=== PATIENT | male | born 1990 | race Two or more races ===

== ENCOUNTER 2024-01-16 08:00 | Emergency (ER) | payer MEDICAID, OTHER ==
[~2024-01-16] VITALS: Ht 175.3 cm; Wt 104.5 kg
[2024-01-16] MEDS: LORazepam 0.5 MG TAB PO ONE (10:50)
[2024-01-16 11:03] VITALS: BP 136/64; PULSE 106; RESP 16; TEMP 98.9; O2SAT 99
== END 2024-01-16 11:06 | disposition home or self-care (01) ==
LOC: ER 08:00 → EDBD 08:00 → ER 11:06
DX: F41.9 Anxiety disorder, unspecified (principal); F15.10 Other stimulant abuse, uncomplicated; F32.9 Major depressive disorder, single episode, unspecified

== ENCOUNTER 2025-03-10 06:53 | Emergency (ER) | payer MEDICAID ==
[~2025-03-10] VITALS: Ht 175.3 cm; Wt 78.9 kg
[2025-03-10 07:30] VITALS: BP 130/83; PULSE 93; RESP 18; TEMP 97.9; O2SAT 97
[2025-03-10] MEDS ORDERED: AUG875T PO (07:54)
--- NOTE | 2025-03-10 07:55 | ED.PDOC ---
History of Present Illness(SKN HPI Comments Portions of this chart may have been created with an modal fluency direct voice recognition software. Occasional wrong-word or "sound-alike" substitutions may have occurred due to the inherent limitations of voice recognition software. Please read the chart carefully and recognize, using context, where these substitutions have occurred. 34-year-old male with no MHx presents with a dog bite on the leg Patient reports he was bitten by a dog last night while walking on [address]. The patient experienced pain + comfort at the site of the bite The patient is unsure of when his last tetanus shot was indicating and maybe more than five years ago Patient complains of no other symptoms. Able to ambulate with a no assistive devices Denies abnormal animal behavior Denies history of immunocompromise (HIV hep B hep C) Denies fever chills night sweats Denies redness around the area Chief Complaint: Animal Bite Time Seen by MD: 07:10 Primary Care Provider: SERENA CANO History of Present Illness: Nurses Notes, Medications, Allergies Allergies: Coded Allergies: No Known Drug Allergy (Verified Allergy, Unknown, 01/16/24) Home Meds Active Scripts Amoxicillin & Pot Clavulanate (AUGMENTIN TABLET) 875 Mg Tb, 875 MG PO BID for 7 Days, #14 TAB 0 Refills Prov:IVANIA CARTAGENAYesika Chi CAN TECHNICIAN 03/10/25 Information Source: Patient Mode of Arrival: Ambulatory Past Medical History PAST MEDICAL HISTORY: Anxiety Surgical History: Denies all surgeries Family History Family History: Reviewed,noncontributory to illness Social History Smoker: Non-Smoker Alcohol: Denies ETOH Use Drugs: Denies Drug Use Lives In: Home All Other Systems: Reviewed and Negative (Per HPI) Physical Exam General Appearance: No Apparent Distress, Normal HEENT: Normal ENT Inspection, Pharynx Normal, TMs Normal Neck: Full Range of Motion, Non-Tender, Normal, Normal Inspection Respiratory: Chest Non-Tender, Lungs Clear, No Accessory Muscle Use, No Respiratory Distress, Normal Breath Sounds Cardiovascular: No Edema (s is a pertinent review), No Murmur, No Gallop, Regular Rate/Rhythm Breast Exam: Deferred Gastrointestinal: No Organomegaly, Non Tender, No Pulsatile Mass, Normal Bowel Sounds, Soft Genitalia: Deferred Pelvic: Deferred Rectal: Deferred Extremities: No calf tenderness, Normal capillary refill, Normal inspection, Normal range of motion, Non-tender, No pedal edema Musculoskeletal : Location: Left Extremity Location: Leg (Two small puncture wounds behind the leg. No active bleeding. No surrounding erythema. No TTP) Apperance: Normal Neurologic: Alert, defense analyst II-XII nml as Tested, No Motor Deficits, Normal Affect, Normal Mood, No Sensory Deficits Cerebellar Function: Normal Reflexes: Normal Skin: Dry, Normal Color, Warm Lymphatic: No Adenopathy Was a procedure done? Was a procedure done?: No Differential Diagnosis (INTG) Differential Diagnosis: Other X-Ray, Labs, Meds, VS Vital Signs Date Time Temp Pulse Resp B/P (MAP) Pulse Ox O2 Delivery O2 Flow Rate FiO2 03/10/25 07:30 93 18 97 Room Air 03/10/25 07:30 97.9 93 18 130/83 (99) 97 97.9 03/10/25 06:56 97.9 93 18 130/83 97 97.9 Current Medications Medications (Trade) Dose Ordered Sig/Nelsy Route Start Time Stop Time Status Last Admin Diphtheria/ Tetanus/Acell Pertussis (Boostrix T-Dap) 0.5 ml ONCE ONCE IM 03/10/25 08:00 03/10/25 08:01 DC 03/10/25 08:08 X-Ray, Labs, Meds, VS Comment Based on the history, exam, and test performed, there does not seem to be a retained foreign body, nerve injury, vascular injury, tendon injury, bone injury or foreign body. Wound appears clean. No evidence of purulent discharge. No rabies vaccine given. Tdap given Wound cleaned in the ER with jet irrigation. Will let wound heal by secondary intention to decrease risk of abscess formation. Patient will be discharged home with prophylactic antibiotics. Will discharge home with Augmentin 875mg PO BID x 7days. Patient [facility] or PCP in 2-3 days for wound re- check. Return to ER as needed. Time of 1ST Reevaluation: 07:30 Reevaluation 1ST: Improved Patient Education/Counseling: Diagnosis, Treatment Family Education/Counseling: Diagnosis, Treatment SEPSIS Sepsis Screen Date sepsis recognized/suspect: Mar 10, 2025 Time Sepsis recognized/suspect: 0656 Recent Procedure: No On Antibiotic Therapy: No Respiratory Rate >20: No Heart Rate >90: Yes Temp<36 C (96.8 F) or >38.3 C: No SBP <90 or MAP <65 mmHG: No New Acute Mental Status Change: No Is the patient on CPAP, BIPAP,: No Vital Signs Date Time Temp Pulse Resp B/P (MAP) Pulse Ox O2 Delivery O2 Flow Rate FiO2 03/10/25 07:30 93 18 97 Room Air 03/10/25 07:30 97.9 93 18 130/83 (99) 97 97.9 03/10/25 06:56 97.9 93 18 130/83 97 97.9 Medications Medications Dose Ordered Sig/Nelsy Route Start Time Stop Time Status Last Admin Dose Admin Diphtheria/ Tetanus/Acell Pertussis 0.5 ml ONCE ONCE IM 03/10/25 08:00 03/10/25 08:01 DC 03/10/25 08:08 Departure 1 Departure Time of Disposition: 07:53 Impression: Primary Impression: Dog bite Qualified Codes: W54.0XXA - Bitten by dog, initial encounter Disposition: 01 HOME / SELF CARE / HOMELESS Condition: Stable e-Prescriptions Amoxicillin & Pot Clavulanate (AUGMENTIN TABLET) 875 Mg Tb 875 MG PO BID for 7 Days, #14 TAB 0 Refills Prov: ABELARDO CARTAGENA NP 03/10/25 Critical Care Note Critical Care Time?: No Stability Stability form required: No Heart Score Heart Score: Heart Score Response (Comments) Value History N/A 0 EKG N/A 0 Age N/A 0 Risk Factors N/A 0 Troponin N/A 0 Total 0 ABELARDO CARTAGENA NP Mar 10, 2025 07:55
[2025-03-10] MEDS: TETANUS-DIPTH-ACEL PERTUSSIS 0.5ML SYR Tdap IM ONE (08:08)
== END 2025-03-10 08:17 | disposition home or self-care (01) ==
LOC: ER 06:53
DX: S81.832A Puncture wound without foreign body, left lower leg, initial encounter (principal); F41.9 Anxiety disorder, unspecified; Z79.899 Other long term (current) drug therapy; W54.0XXA Bitten by dog, initial encounter; Y93.01 Activity, walking, marching and hiking; Y92.89 Other specified places as the place of occurrence of the external cause; Y99.8 Other external cause status
CPT/HCPCS: 90471; 90715

== ENCOUNTER 2025-03-16 09:13 | Emergency (ER) | payer MEDICAID ==
[~2025-03-16] VITALS: Ht 175.3 cm; Wt 76.9 kg
[~2025-03-16 09:13] MED LIST: AUG875T PO
[2025-03-16] MEDS ORDERED: AUG875T PO (09:34)
[2025-03-16] MEDS ORDERED: NAPR-746 PO (09:34)
--- NOTE | 2025-03-16 09:42 | ED.PDOC ---
History of Present Illness HPI Comments A 34 YEAR OLD MALE PRESENTS TO THE ED WITH COMPLAINT OF ANIMAL BITE AND BLISTER TO LEFT ELBOW. PATIENT STATES THAT HE WAS BITTEN BY A DOG X 2 DAYS AGO AND NOW HAS A SMALL PUNCTURE TO HIS POSTERIOR LEFT LEG. PATIENT DENIES ANY SWELLING OR REDNESS, BUT STATES THAT IT IS TENDER TO TOUCH. PATIENT HAS NO SIGNS OF INFECTION AND THERE IS NO DRAINAGE . PATIENT DENIES FEVER, CHILLS, SHORTNESS OF BREATH, CHEST PAIN, ABDOMINAL PAIN, NAUSEA, VOMITING, HEADACHE, OR OTHER COMPLAINTS. NO OTHER SYMPTOMS OR MODIFYING FACTORS AT THIS TIME. PATIENT IS ALERT, ORIENTED X 4, AND HAS STEADY GAIT. Chief Complaint: Animal Bite Time Seen by MD: 09:18 Primary Care Provider: SERENA CANO Reviewed Notes: Nurses Notes, Medications, Allergies Allergies: Coded Allergies: No Known Drug Allergy (Verified Allergy, Unknown, 01/16/24) Home Meds Active Scripts Amoxicillin & Pot Clavulanate (AUGMENTIN TABLET) 875 Mg Tb, 875 MG PO BID for 10 Days, #20 TAB Prov:HARRY ESCOBEDO 03/16/25 Naproxen (Naproxen) 500 Mg Tab, 500 MG PO BID, #30 TAB Prov:HARRY ESCOBEDO 03/16/25 Amoxicillin & Pot Clavulanate (AUGMENTIN TABLET) 875 Mg Tb, 875 MG PO BID for 7 Days, #14 TAB 0 Refills Prov:ABELARDO CARTAGENA NP 03/10/25 Information Source: Patient Mode of Arrival: Ambulatory Severity: Mild, Moderate Timing: Days Duration: Since onset, Days Prehospital treatment: None Medication Refill: For: Other (RIGHT POSTERIOR ELBOW AND LEFT POSTERIOR LOWER LEG WOUNDS) Past Medical History PAST MEDICAL HISTORY: Anxiety Surgical History: Denies all surgeries Family History Family History: Reviewed,noncontributory to illness Social History Smoker: Non-Smoker Alcohol: Denies ETOH Use Drugs: Denies Drug Use Lives In: Home Constitutional: denies: chills, diaphoresis, fatigue, fever, malaise, sweats, weakness, others EENTM: denies: blurred vision, double vision, ear bleeding, ear discharge, ear drainage, ear pain, ear ringing, eye pain, eye redness, hearing loss, mouth pain, mouth swelling, nasal discharge, nose bleeding, nose congestion, nose pain, photophobia, tearing, throat pain, throat swelling, voice changes, others Respiratory: denies: cough, hemoptysis, orthopnea, SOB at rest, shortness of breath, SOB with excertion, stridor, wheezing, others Cardiovascular: denies: chest pain, dizzy spells, diaphoresis, Dyspnea on exertion, edema, irregular heart beat, left arm pain, lightheadedness, palpitations, PND, syncope, others Gastrointestinal: denies: abdomen distended, abdominal pain, blood streaked bowels, constipated, diarrhea, dysphagia, difficulty swallowing, hematemesis, melena, nausea, poor appetite, poor fluid intake, rectal bleeding, rectal pain, vomiting, others Genitourinary: denies: burning, dysuria, flank pain, frequency, hematuria, inc ontinence, penile discharge, penile sore, pain, testicle pain, testicle swelling, urgency, others Neurological: denies: dizziness, fainting, headache, left sided numbness, left sided weakness, numbness, paresthesia, pre-existing deficit, right sided numbness, right sided weakness, seizure, speech problems, tingling, tremors, weakness, others Musculoskeletal: denies: back pain, gout, joint pain, joint swelling, muscle pain, muscle stiffness, neck pain, others Integumetry: reports: lesions, wounds; denies: bruises, change in color, change in hair/nails, dryness, laceration, lumps, rash, others Allergic/Immunocompromised: denies: Difficulty Healing, Frequent Infections, Hives, Itching, others Hematologic/Lymphatic: denies: anemia, blood clots, easy bleeding, easy bruising, swollen glands, others Endocrine: denies: excessive hunger, excessive sweating, excessive thirst, excessive urination, flushing, intolerance to cold, intolerance to heat, unexplained weight gain, unexplained weight loss, others Psychiatric: denies: anxiety, bipolar disorder, depression, hopeless, panic disorder, schizophrenia, sleepless, suicidal, others All Other Systems: Reviewed and Negative Physical Exam General Appearance: No Apparent Distress, Normal HEENT: Normal ENT Inspection, PERRL/EOMI, Pharynx Normal, TMs Normal Neck: Full Range of Motion, Non-Tender, Normal, Normal Inspection Respiratory: Chest Non-Tender, Lungs Clear, No Accessory Muscle Use, No Respiratory Distress, Normal Breath Sounds Cardiovascular: No Edema, No JVD, No Murmur, No Gallop, Normal Peripheral Pulses, Regular Rate/Rhythm Breast Exam: Deferred Gastrointestinal: No Organomegaly, Non Tender, No Pulsatile Mass, Normal Bowel Sounds, Soft Genitalia: Deferred Pelvic: Deferred Rectal: Deferred Extremities: No calf tenderness, Normal capillary refill, Normal range of motion, No pedal edema, Tender (WITH PUNCTURE WOUND AND BLISTERS ON RIGHT POSTERIOR ELBOW AND LEFT LOWER LEG. ) Musculoskeletal : Apperance: Normal Neurologic: Alert, garden implement mechanic II-XII nml as Tested, No Motor Deficits, Normal Affect, Normal Mood, No Sensory Deficits Cerebellar Function: Normal Reflexes: Normal Skin: Dry, Normal Color, Warm, Wounds (A FEW BLISTER WOUND ON RIGHT POSTERIOR ELBOW, NO SWELLING AND PUS DRAINAGE. A SMALL PUNCTURE WOUND ON LEFT LATERAL LOWER LEG, NO SWELLING AND DRAINAGE. ) Peripheral Pulses: 2+ carotid (R), 2+ carotid (L), 2+ dorsalis pedis (R), 2+ dorsalis pedis (L) Lymphatic: No Adenopathy Was a procedure done? Was a procedure done?: No Differential Dx Considerations may include: PUNCTURE WOUND OF LEFT LOWER LEG S/P DOG BITE, BLISTER WOUND ON RIGHT POSTERIOR PROXIMAL FOREARM. X-Ray, Labs, Meds, VS Vital Signs Date Time Temp Pulse Resp B/P (MAP) Pulse Ox O2 Delivery O2 Flow Rate FiO2 03/16/25 09:17 98.3 110 18 107/54 97 98.3 Time of 1ST Reevaluation: 10:00 Reevaluation 1ST: Improved Patient Education/Counseling: Diagnosis, Treatment, Need For Follow Up Family Education/Counseling: Diagnosis, Treatment, Need For Follow Up Medical Screening: No EMC Exist At This Time SEPSIS Sepsis Screen Date sepsis recognized/suspect: Mar 16, 2025 Time Sepsis recognized/suspect: 919 Recent Procedure: No On Antibiotic Therapy: No Respiratory Rate >20: No Heart Rate >90: Yes Temp<36 C (96.8 F) or >38.3 C: No SBP <90 or MAP <65 mmHG: No New Acute Mental Status Change: No Is the patient on CPAP, BIPAP,: No Vital Signs Date Time Temp Pulse Resp B/P (MAP) Pulse Ox O2 Delivery O2 Flow Rate FiO2 03/16/25 09:17 98.3 110 18 107/54 97 98.3 Departure 1 Departure Time of Disposition: 09:51 Impression: Primary Impression: Puncture wound of left lower leg Qualified Codes: S81.832A - Puncture wound without foreign body, left lower leg, initial encounter Additional Impression: Dog bite Qualified Codes: W54.0XXA - Bitten by dog, initial encounter Disposition: HOME / SELF CARE / HOMELESS Condition: Stable Additional Instructions: FOLLOW-UP WITH PCP IN 1 TO 2 DAYS. TAKE MEDICATIONS PRESCRIBED. RETURN TO ED FOR ANY NEW OR WORSENING SYMPTOMS. e-Prescriptions Amoxicillin & Pot Clavulanate (AUGMENTIN TABLET) 875 Mg Tb 875 MG PO BID for 10 Days, #20 TAB Prov: HARRY ESCOBEDO 03/16/25 Naproxen (Naproxen) 500 Mg Tab 500 MG PO BID, #30 TAB Prov: HARRY ESCOBEDO 03/16/25 Discharged With: Self Critical Care Note Critical Care Time?: No Stability Stability form required: No Heart Score Heart Score: Heart Score Response (Comments) Value History N/A 0 EKG N/A 0 Age N/A 0 Risk Factors N/A 0 Troponin N/A 0 Total 0 I personally scribed for HARRY ESCOBEDO ([email or web address]) on 03/16/25 at 09:46. Electronically submitted by Morales Neumann ([email or web address]). I personally scribed for HARRY ESCOBEDO ([email or web address]) on 03/16/25 at 09:47. Electronically submitted by Morales Neumann ([email or web address]). HARRY ESCOBEDO Mar 16, 2025 09:42
[2025-03-16 09:47] VITALS: BP 107/54; PULSE 110; RESP 18; TEMP 98.3; O2SAT 97
== END 2025-03-16 09:49 | disposition home or self-care (01) ==
LOC: ER 09:13
DX: S50.322A Blister (nonthermal) of left elbow, initial encounter (principal); S81.832A Puncture wound without foreign body, left lower leg, initial encounter; W54.0XXA Bitten by dog, initial encounter; Y93.89 Activity, other specified; Y92.89 Other specified places as the place of occurrence of the external cause; Y99.8 Other external cause status